=== PATIENT | female | born 1955 | race Caucasian/White ===

== ENCOUNTER → 2017-04-06 | Outpatient (CLI) | payer BC ==
--- NOTE | 2017-04-08 16:55 | RAD ---
Examination: XR HIP 1 VIEW BILATERAL dated 04/06/2017 9:02 AM CDT History: PAIN IN RIGHT AND LEFT HIPS Comparison: Pelvis radiograph 2012 Technique: Two views of both hips FINDINGS: Right hip: Advanced joint space loss with marginal osteophytosis and flattening of the femoral head superiorly. No fracture. Left hip: Moderate joint space loss and osteophytosis. The femoral head maintains a normal contour. No fracture. IMPRESSION: Advanced degenerative changes of the right hip and moderate degenerative changes of the left hip. Electronically signed by: Holden Horne MD 04/08/2017 4:54 PM CDT
--- NOTE | 2017-04-08 16:56 | RAD ---
Examination: XR PELVIS 1-2 VIEWS dated 04/06/2017 9:02 AM CDT History: PAIN IN RIGHT AND LEFT HIPS Comparison: None Technique: Frontal view of the pelvis FINDINGS AND IMPRESSION: See separate hip radiograph for details pertaining to the hips. Intact pelvic ring. Symmetric SI joints. No fracture. Electronically signed by: Holden Horne MD 04/08/2017 4:55 PM CDT
== END | disposition home or self-care (01) ==
LOC: RAD 08:56
PROVIDERS: ATTEND Orthopaedic Surgery
DX: M25.551 Pain in right hip (principal); M25.552 Pain in left hip

== ENCOUNTER 2017-04-12 06:00 | Day surgery (SDC) | payer BC ==
--- NOTE | 2017-04-10 08:56 | HP ---
CHIEF COMPLAINT: Bilateral hip pain. HISTORY OF PRESENT ILLNESS: Corinne is a 61-year-old female with a history of pain in both hips. She has had intraarticular injection on the right which was done about 5 years ago by me. She has been having increasing pain. She has pain that has begun on the left side as well. She has had no new trauma since her last injection. She denies any radiation of pain or neurologic symptoms. PAST SURGICAL HISTORY: 1. Cholecystectomy. MEDICATIONS: 1. Atorvastatin. 2. Valsartan. 3. Venlafaxine. 4. Meloxicam. ALLERGIES: NO KNOWN DRUG ALLERGIES. CODE STATUS: DNR. IMMUNIZATIONS: Up to date. SOCIAL HISTORY: The patient does not smoke or use any illicit drugs. She does drink alcohol on occasion. FAMILY HISTORY: None pertinent to today's complaint. REVIEW OF SYSTEMS: Negative except as indicated in the History of Present Illness. PHYSICAL EXAMINATION: VITAL SIGNS: Blood pressure 148/100. Pulse 74. Height 5'6". Weight 248. GENERAL: She is an obese female in no acute distress. MENTAL STATUS: The patient is awake, alert, and is able to give a good history and participate in the physical. The patient is oriented to person, place and time. SKIN: Normal tone and turgor. MUSCULOSKELETAL: She has obligate external rotation bilaterally. She has 0 degrees of internal rotation on the right and about 15 degrees of internal rotation on the left. She has full extension of both legs. Flexion beyond 100 degrees causes pain on the right and 115 degrees on the left causes pain. She does walk with severe antalgic gait. IMAGING: X-rays show severe arthritis of the right hip and advanced arthritis of the left hip. ASSESSMENT: 1. Osteoarthritis. PLAN: The plan at this point is for bilateral intraarticular injection. We have discussed the risks, benefits, and alternatives to that and the patient has given informed consent. #[id number] [facility]
[2017-04-12] MEDS ORDERED: LIDOCAINE 1% W/ EPINEPHRINE 20 ML VIAL INJ ONE (10:13)
[2017-04-12] MEDS ORDERED: BUPIVACAINE 0.25% INJ 30 ML VIAL INJ ONE (10:13)
[2017-04-12] MEDS ORDERED: methylPREDNISolone ACETATE 80 MG/ML VIAL ONE (10:14)
[2017-04-12] MEDS ORDERED: LACTATED RINGERS 1,000 ML ONE (10:48)
[2017-04-12 11:34] VITALS: TEMP 98.3; O2SAT 95
[2017-04-12] MEDS ORDERED: LIDOCAINE 1% 10 ML VIAL INJ ONE (12:00)
[2017-04-12] MEDS ORDERED: PROPOFOL 200 MG/20 ML VIAL IV ONE (12:00)
[2017-04-12 12:49] VITALS: BP 114/73
--- NOTE | 2017-04-13 08:13 | OP ---
DATE OF PROCEDURE: 04/12/17 PREOPERATIVE DIAGNOSIS: 1. Bilateral hip osteoarthritis. POSTOPERATIVE DIAGNOSIS: 1. Bilateral hip osteoarthritis. PROCEDURE: 1. Bilateral hip injection under sedation. SURGEON: Michi Disla MD. CELERY WRAPPER: Serg Pichardo CST, SA-C. ANESTHESIA: Conscious sedation. COMPLICATIONS: None. FINDINGS: Severe arthritis of both hips. INDICATION: The patient has a history of severe hip pain. It has been present for years and she has been getting worse. At this point, she is having difficulty with any activities. She is not a candidate currently for total hip arthroplasty and, therefore, has requested injection. After discussing the risks, benefits and alternatives to that, the patient has given informed consent for that. PROCEDURE: The patient was brought to the Operating Room and placed in supine position. Conscious sedation was administered. The right leg was hyperflexed, abducted and externally rotated. Following that maneuver, the groin was sterilely prepped and through a medial portal, an 18-gauge spinal needle was advanced into the joint. Once it had been confirmed that the needle was actually in the joint, an injection of lidocaine and Depo-Medrol was performed. The needle was withdrawn. Pressure was held on the injection site. Sterile bandage was placed. Following that, the contralateral hip was flexed, abducted and externally rotated. After sterilely prepping the groin, through a medial portal, an 18-gauge spinal needle was advanced into the joint. Once it was confirmed that the needle was actually in the joint, an injection of Marcaine and Depo-Medrol was performed. The needle was withdrawn and pressure was held. A sterile bandage was applied. The patient was then taken back to the Day Surgery Unit. POSTOPERATIVE INSTRUCTIONS: The patient will be weight-bearing as tolerated. The patient will followup with us in about ten days. #[id number] [facility]
== END 2017-04-12 12:00 | disposition home or self-care (01) ==
LOC: AMB 06:00
PROVIDERS: ATTEND Orthopaedic Surgery
DX: M16.0 Bilateral primary osteoarthritis of hip (principal); I10 Essential (primary) hypertension; K21.9 Gastro-esophageal reflux disease without esophagitis; Z87.891 Personal history of nicotine dependence; F32.9 Major depressive disorder, single episode, unspecified; Z79.899 Other long term (current) drug therapy
CPT/HCPCS: 01200; 20610; 76000; 87070; J1030; J3490; J7120

== ENCOUNTER → 2018-10-10 | Outpatient (CLI) | payer BC ==
--- NOTE | 2018-10-10 17:30 | US ---
EXAM DESCRIPTION: Soft Tissue,Extremity: ULTRASOUND. CLINICAL HISTORY: 63 years Female M71.372. Palpable mass on the dorsal aspect of the foot. COMPARISON: None Available. TECHNIQUE: Transcutaneous scanning: Padilla-scale and Doppler modes. FINDINGS: An elongated mostly anechoic compartment surrounds an echogenic structure which has the appearance of the tendon. Increased echogenicity in the tendon This fluid collection measures 4 cm in length and 1.8 x 1.0 cm in width. No abnormal vascularity. No dominant solid mass. No large calcifications. IMPRESSION: Possible tenosynovitis on the dorsum of the foot. Electronically signed by: Serg Smith MD 10/10/2018 5:27 PM CDT
== END ==
LOC: GMAE 11:13
PROVIDERS: ATTEND Family Medicine
DX: Z00.00 Encounter for general adult medical examination without abnormal findings (principal); M71.372 Other bursal cyst, left ankle and foot

== ENCOUNTER → 2019-12-04 | Outpatient (CLI) | payer BC | LOC: GMAE 11:39 | PROVIDERS: ATTEND Family Medicine | DX: I10 Essential (primary) hypertension (principal) ==